=== PATIENT | female | born 1980 | race Two or more races ===

== ENCOUNTER 2016-10-01 10:47 | Outpatient (CLI) | payer MEDICAID ==
[2016-10-01 11:12] LABS: ALBUMIN/GLOBULIN RATIO 1.6 (1.0-2.2); BILIRUBIN,TOTAL 0.6 mg/dL (0.2-1.0); BUN - BLOOD UREA NITROGEN 11 mg/dL (6-20); CALCIUM 9.6 mg/dL (8.5-10.3); CARBON DIOXIDE - CO2 30 mmol/L (21-32); CHLORIDE 101 mmol/L (101-111); CREATININE 0.6 mg/dL (0.4-1.0); GFR - MDRD 114 (>89); GLUCOSE 63 mg/dL (70-100); POTASSIUM 3.9 mmol/L (3.5-5.0); SODIUM 139 mmol/L (135-145); TOTAL PROTEIN 7.7 g/dL (6.7-8.2)
[2016-10-01 11:19] LABS: BASOPHILS # (AUTO) 0.1 10^3/uL (0.0-0.1); BASOPHILS % (AUTO) 0.7 %; EOSINOPHILS # (AUTO) 0.1 10^3/uL (0.0-0.7); EOSINOPHILS % (AUTO) 1.3 %; HCT - HEMATOCRIT 44.4 % (37.0-47.0); LYMPHOCYTES # (AUTO) 2.1 10^3/uL (1.5-3.5); LYMPHOCYTES % (AUTO) 22.7 %; MEAN CORPUSCULAR HEMOGLOBIN 29.6 pg (27.0-31.0); MEAN CORPUSCULAR HGB CONC 33.8 g/dL (32.0-36.0); MEAN CORPUSCULAR VOLUME 87.5 fL (81.0-99.0); MEAN PLATELET VOLUME 7.9 fL (7.9-10.8); MONOCYTES # (AUTO) 0.6 10^3/uL (0.0-1.0); MONOCYTES % (AUTO) 6.7 %; NEUTROPHILS # (AUTO) 6.2 10^3/uL (1.5-6.6); NEUTROPHILS % (AUTO) 68.6 %; NUCLEATED RED BLOOD CELLS AUTO 0.1 /100WBC; RED BLOOD COUNT 5.08 10^6/uL (4.20-5.40); RED CELL DISTRIBUTION WIDTH 13.3 % (12.0-15.0)
== END 2016-10-01 10:48 | disposition home or self-care (01) ==
LOC: LAB 10:47
PROVIDERS: ATTEND Physician Assistant Medical
DX: Z00.00 Encounter for general adult medical examination without abnormal findings (principal)
CPT/HCPCS: 36415; 80053; 84443; 85025

== ENCOUNTER 2017-03-22 10:06 | Emergency (ER) | payer MEDICAID, OTHER ==
[2017-03-22 11:05] LABS: HCG UR QUAL NEGATIVE
[2017-03-22 12:03] VITALS: BP 109/69
--- NOTE | 2017-03-22 12:28 | ED Physician Documentation ---
History of Present Illness - Stated complaint Stated Complaint: COLDS - Chief complaint Chief Complaint: Heent - Additonal information Additional information: hx from pt 36 female subj fever chills myalgias fatigue cough for 3 days no NV Review of Systems Constitutional: reports: Fever, Chills, Myalgias, Fatigue Throat: reports: Sore throat (with cough) Respiratory: reports: Cough GI: denies: Vomiting, Diarrhea Immunocompromised: denies: Immunocompromised PD PAST MEDICAL HISTORY - Past Medical History Endocrine/Autoimmune: None GI: None - Past Surgical History Past Surgical History: Yes General: Cholecystectomy - Present Medications Home Medications: Ambulatory Orders Medication Instructions Recorded Confirmed Benzonatate [Tessalon] 100 mg PO TID PRN #20 capsule 03/22/17 Cholecalciferol [Vitamin D3] 5,000 unit 03/22/17 FLUoxetine [PROzac] 10 mg PO DAILY 03/22/17 03/22/17 Fluticasone [Flonase] 1 sprays ANTHONY BID PRN #1 bottle 03/22/17 guaiFENesin/DEXTROMETHORPHAN 10 ml PO Q6H PRN #120 ml 03/22/17 [Robitussin Dm] - Allergies Allergies/Adverse Reactions: Allergies Allergy/AdvReac Type Severity Reaction Status Date / Time No Known Drug Allergies Allergy Verified 03/22/17 10:17 - Social History Does the pt smoke?: No Smoking Status: Never smoker Does the pt drink ETOH?: No Does the pt have substance abuse?: No - Immunizations Immunizations are current?: Yes PD ED PE NORMAL - Vitals Vital signs reviewed: Yes - General General: Alert and oriented X 3 - HEENT HEENT: PERRL, Ears normal, Moist mucous membranes, Pharynx benign - Neck Neck: Supple, no meningeal sign - Cardiac Cardiac: RRR - Respiratory Respiratory: No respiratory distress, Clear bilaterally - Abdomen Abdomen: Soft, Non tender - Neuro Neuro: Alert and oriented X 3 Results - Vitals Vitals: Vital Signs - 24 hr 03/22/17 03/22/17 10:15 12:02 Temperature 36.5 C 37.0 C Heart Rate 118 H 104 H Respiratory 16 16 Rate Blood Pressure 122/90 H 109/69 O2 Saturation 99 99 Oxygen O2 Source Room air - Labs Labs: Laboratory Tests 03/22/17 03/22/17 10:25 10:48 Ur Specific [place] 1.025 Urine HCG, Qual NEGATIVE Influenza A (Rapid) Negative Influenza B (Rapid) POSITIVE H Influenza Types A,B Ag + H PD MEDICAL DECISION MAKING - ED course ED course: pt on day 3 influenza d/w pt risk benefit tamiflu she states she too several yr ago and had hallucinations so we agree benefit small risk large and will not rx Departure - Departure Disposition: 01 Home, Self Care Clinical Impression: Influenza B Condition: Good Instructions: ED Flu Follow-Up: Ct Macias PA-C [Primary Care Provider] - Prescriptions: Benzonatate [Tessalon] 100 mg PO TID PRN #20 capsule PRN Reason: to ease cough Fluticasone [Flonase] 1 sprays ANTHONY BID PRN #1 bottle PRN Reason: congestion guaiFENesin/DEXTROMETHORPHAN [Robitussin Dm] 10 ml PO Q6H PRN #120 ml PRN Reason: Cough Forms: Activity restrictions
== END 2017-03-22 12:39 | disposition home or self-care (01) ==
LOC: ED 10:06
DX: J10.1 Influenza due to other identified influenza virus with other respiratory manifestations (principal)
CPT/HCPCS: 81025; 87275; 87276; 99283

== ENCOUNTER 2018-09-27 13:26 | Outpatient (CLI) | payer OTHER, MEDICAID ==
[2018-09-27 13:43] LABS: BASOPHILS # (AUTO) 0.1 10^3/uL (0.0-0.1); BASOPHILS % (AUTO) 0.4 %; EOSINOPHILS # (AUTO) 0.1 10^3/uL (0.0-0.7); HGB - HEMOGLOBIN 14.3 g/dL (12.0-16.0); LYMPHOCYTES # (AUTO) 2.2 10^3/uL (1.5-3.5); LYMPHOCYTES % (AUTO) 19.2 %; MEAN CORPUSCULAR HEMOGLOBIN 30.9 pg (27.0-31.0); MEAN CORPUSCULAR VOLUME 90.9 fL (81.0-99.0); MEAN PLATELET VOLUME 9.8 fL (7.9-10.8); MONOCYTES # (AUTO) 0.8 10^3/uL (0.0-1.0); MONOCYTES % (AUTO) 6.8 %; NEUTROPHILS # (AUTO) 8.1 10^3/uL (1.5-6.6); NEUTROPHILS % (AUTO) 71.7 %; PLT - PLATELET COUNT 280 10^3/uL (130-450); RED BLOOD COUNT 4.63 10^6/uL (4.20-5.40); RED CELL DISTRIBUTION WIDTH 12.7 % (12.0-15.0); WHITE BLOOD COUNT 11.3 x10^3/uL (4.8-10.8)
[2018-09-27 13:57] LABS: ALBUMIN 4.2 g/dL (3.2-5.5); ALBUMIN/GLOBULIN RATIO 1.4 (1.0-2.2); ALKALINE PHOSPHATASE 48 IU/L (42-121); ALT ALANINE AMINOTRANSFERASE 32 IU/L (10-60); AST ASPARTATE AMINOTRANSFERASE 19 IU/L (10-42); BILIRUBIN,TOTAL 0.3 mg/dL (0.2-1.0); BUN - BLOOD UREA NITROGEN 9 mg/dL (6-20); CALCIUM 9.6 mg/dL (8.5-10.3); CARBON DIOXIDE - CO2 27 mmol/L (21-32); CHLORIDE 104 mmol/L (101-111); CREATININE 0.6 mg/dL (0.4-1.0); GFR - MDRD 113 (>89); GLUCOSE 101 mg/dL (70-100); SODIUM 140 mmol/L (135-145); TOTAL PROTEIN 7.2 g/dL (6.7-8.2)
[2018-09-27 14:03] LABS: CRP - C-REACTIVE PROTEIN < 1.0 mg/dL (0-1.0)
== END 2018-09-27 13:27 | disposition home or self-care (01) ==
LOC: LAB 13:26
PROVIDERS: ATTEND Family Medicine
DX: R10.2 Pelvic and perineal pain (principal)
CPT/HCPCS: 36415; 80053; 84702; 85025; 85651; 86140

== ENCOUNTER 2018-10-07 09:27 | Outpatient (CLI) | payer OTHER, MEDICAID ==
--- NOTE | 2018-10-08 14:18 | Ultrasound Report ---
Reason: PELVIC PAIN Procedure Date: 10/07/2018 Accession Number: [id number] / [id number] Procedure: US - Pelvic w/Transvaginal CPT Code: FULL RESULT: EXAM: PELVIC ULTRASOUND EXAM DATE: 10/07/2018 10:25 AM. CLINICAL HISTORY: Pelvic pain. COMPARISON: None. TECHNIQUE: Realtime transabdominal pelvic scan performed to identify the uterus and adnexa and as an overview of other pelvic structures, followed by transvaginal scan to provide greater detail of the uterus and adnexa, with static image documentation. FINDINGS: Uterus: 8.0 x 3.9 x 4 x 5 cm, volume 72 cc. Anteverted position. Somewhat heterogeneous echotexture, otherwise within normal limits. Masses: 1.0 x 0.7 x 0.9 cm heterogeneous hypoechoic nodule, likely fibroid. Endometrium: 6 mm. Color Doppler evaluation of the endometrium suggests a feeding vessel along the posterior fundal endometrium in a heterogeneous appearing portion of the endometrium, suspect polyp. Cervix: Unremarkable. Right Ovary: 3.2 x 2.0 x 3.1 cm, volume 10.5 cc. 0.7 cm mildly hypoechoic nodule, likely subcentimeter hemorrhagic cyst. Otherwise normal echotexture and blood flow. Left Ovary: 2.6 x 1.5 x 2.4 cm, volume 4.7 cc. Normal echotexture and blood flow. Free Fluid: None. Other: None. IMPRESSION: Suspect fundal endometrial polyp as described. Small uterine fibroid potentially with submucosal component. RADIA
== END 2018-10-07 09:28 | disposition home or self-care (01) ==
LOC: DI 09:27
PROVIDERS: ATTEND Family Medicine
DX: N85.9 Noninflammatory disorder of uterus, unspecified (principal)
CPT/HCPCS: 76830; 76856

== ENCOUNTER 2020-05-04 20:51 | Outpatient (CLI) | payer MEDICAID ==
--- NOTE | 2020-05-05 09:06 | Ultrasound Report ---
PROCEDURE: OB First Trimester w/TV INDICATIONS: SUPERVISION OF NORMAL PREGNANY, MULTIPAROUS OUTSIDE/PRIOR DATING DATA: Last menstrual period (LMP): 03/06/2020. LMP-based estimated date of delivery (MOIZ): 12/11/2020. First dating scan (date and location): 05/04/2020. Estimated date of delivery (MOIZ) from first dating scan: 12/28/2020. TECHNIQUE: Real-time scanning was performed of the fetus and maternal pelvic organs, with image documentation. Endovaginal scanning was also performed to better visualize the fetus and maternal ovaries. COMPARISON: None FINDINGS: There is a single intrauterine gestation with crown-rump length 0.34 cm, with a measuremen t correlated with a gestational age of 6 weeks 0 days, +/- 5 days. cardiac activity is not obse rved. There is a small posterior uterine fibroid measuring only 1.7 cm in dimension. Measurement variabilit y in dating: +/- 4 weeks by LMP, +/- 7 days by mean sac diameter (use before 6 weeks gestation if cr own-rump length not able to be measured), +/- 5 days by crown-rump length (6-12 weeks gestation). Maternal organs: Ovaries normal considering gestational status.. IMPRESSION: Intrauterine gestation with yolk sac observed within the gestational sac. A pole without cardiac activity is currently visualized, and the size of the gestation is small to the degree that f etal cardiac activity may be not yet developed despite viable gestation. Correlation with quantitative beta hCG can be performed to assist in establishing likelihood of viabl e gestation. Additionally, and alternatively, follow-up repeat early OB ultrasound in 7-10 days could be performed. Reviewed by: Bobby Greer MD on 05/05/2020 9:05 AM PDT Approved by: Bobby Greer MD on 05/05/2020 9:05 AM PDT Station ID: [id number]
== END 2020-05-04 20:52 | disposition home or self-care (01) ==
LOC: DI 20:51
PROVIDERS: ATTEND Advanced Practice Midwife
DX: Z34.81 Encounter for supervision of other normal pregnancy, first trimester (principal)

== ENCOUNTER 2020-05-07 18:37 | Outpatient (CLI) | payer MEDICAID | END 2020-05-07 18:38 | disposition home or self-care (01) | LOC: LAB 18:37 | PROVIDERS: ATTEND Nurse Practitioner Obstetrics & Gynecology | DX: O20.0 Threatened abortion (principal) | CPT/HCPCS: 36415; 84702 ==

== ENCOUNTER 2020-05-10 07:19 | Outpatient (CLI) | payer MEDICAID | END 2020-05-10 07:20 | disposition home or self-care (01) | LOC: LAB 07:19 | PROVIDERS: ATTEND Nurse Practitioner Obstetrics & Gynecology | DX: O20.0 Threatened abortion (principal) | CPT/HCPCS: 36415; 84702 ==

== ENCOUNTER 2020-05-13 18:28 | Outpatient (CLI) | payer MEDICAID | END 2020-05-13 18:29 | disposition home or self-care (01) | LOC: LAB 18:28 | PROVIDERS: ATTEND Advanced Practice Midwife | DX: O20.0 Threatened abortion (principal) | CPT/HCPCS: 36415; 84702 ==

== ENCOUNTER 2020-05-14 08:49 | Outpatient (CLI) | payer MEDICAID | END 2020-05-14 08:50 | disposition home or self-care (01) | LOC: LAB 08:49 | PROVIDERS: ATTEND Advanced Practice Midwife | DX: O20.0 Threatened abortion (principal) | CPT/HCPCS: 36415; 84702 ==

== ENCOUNTER 2020-05-14 19:41 | Outpatient (CLI) | payer MEDICAID ==
--- NOTE | 2020-05-14 21:39 | Ultrasound Report ---
PROCEDURE: OB First Trimester w/TV INDICATIONS: THREATENED OUTSIDE/PRIOR DATING DATA: Last menstrual period (LMP): 03/06/2020. LMP-based estimated date of delivery (MOIZ): 12/11/2020. First dating scan (date and location): 05/04/2020. Estimated date of delivery (MOIZ) from first dating scan: 12/28/2020. TECHNIQUE: Real-time scanning was performed of the fetus and maternal pelvic organs, with image documentation. Endovaginal scanning was also performed to better visualize the fetus and maternal ovaries. COMPARISON: 05/04/2020. FINDINGS: Embryo: There is an intrauterine gestational sac with a mean sac diameter of 1.6 cm corresponding to a gestational age of 6 weeks 3 days. The gestational sac is oblong in appearance. A yolk sac is iden tified. There is a small pole redemonstrated with a crown-rump length of 0.4 cm again correspon ding to a calculated gestational age of 6 weeks 0 days. No heart motion visualized are identifi ed on M-mode Doppler interrogation. A small amount of endometrial fluid is present. There is a hypoec hoic posterior fibroid in the uterus measuring up to 1.9 x 1.9 x 1.7 cm. Measurement variability in dating: +/- 4 weeks by LMP, +/- 7 days by mean sac diameter (use before 6 weeks gestation if crown-rump length not able to be measured), +/- 5 days by crown-rump length (6-12 weeks gestation). Maternal organs: The right ovary measures up to 3.3 x 1.8 x 2.9 cm with a volume of 8.9 mL. The left ovary measures up to 2.1 x 1.6 x 1.9 cm with a volume of 3.4 mL. There is a hypoechoic structure with in the right ovary with posterior acoustic enhancement measuring up to 1.9 cm with peripheral vascula rity is compatible with a corpus luteal cyst. A heterogeneous thick-walled structure in the left ovar y measuring up to 1.4 cm may also represent a small corpus luteal cyst. IMPRESSION: 1. Single intrauterine redemonstrated with a small pole demonstrating no interval xavier wth compared to the prior study. heart motion is again not identified. The findings are compati ble with a spontaneous progress. Reviewed by: Pablito Rosenberg MD on 05/14/2020 9:37 PM PDT Approved by: Pablito Rosenberg MD on 05/14/2020 9:37 PM PDT Station ID: [id number]
== END 2020-05-14 19:42 | disposition home or self-care (01) ==
LOC: DI 19:41
PROVIDERS: ATTEND Advanced Practice Midwife
DX: O20.0 Threatened abortion (principal); Z3A.01 Less than 8 weeks gestation of pregnancy
CPT/HCPCS: 36415; 84702

== ENCOUNTER 2020-05-27 17:52 | Outpatient (CLI) | payer MEDICAID | END 2020-05-27 17:53 | disposition home or self-care (01) | LOC: LAB 17:52 | PROVIDERS: ATTEND Advanced Practice Midwife | DX: O20.0 Threatened abortion (principal) | CPT/HCPCS: 36415; 84702 ==

== ENCOUNTER 2020-12-15 08:00 | Outpatient (CLI) | payer MEDICAID ==
[2020-12-16 12:59] LABS: BILIRUBIN,URINE NEGATIVE (NEGATIVE); GLUCOSE, URINE (UA) NEGATIVE (NEGATIVE); KETONES,URINE (UA) NEGATIVE (NEGATIVE); LEUKOCYTE ESTERASE, URINE SMALL (NEGATIVE); NITRITE,URINE NEGATIVE (NEGATIVE); OCCULT BLOOD,URINE NEGATIVE (NEGATIVE); PH,URINE 6.5 PH (5.0-7.5); PROTEIN,URINE NEGATIVE (NEGATIVE); UROBILINOGEN,URINE 0.2 (NORMAL) E.U./dL (NORMAL)
[2020-12-16 13:02] LABS: CLARITY,URINE CLEAR (CLEAR)
[2020-12-16 13:46] LABS: RBC,URINE 0-5 /HPF (0-5); SQUAMOUS EPITHELIAL CELL,UR MOD Squamous (<= Few); WBC,URINE 0-3 /HPF (0-5)
[2020-12-16 13:47] LABS: BACTERIA,URINE Few /HPF (None Seen)
== END 2020-12-15 23:59 | disposition home or self-care (01) ==
LOC: LAB.WC 08:00
PROVIDERS: ATTEND Nurse Practitioner Obstetrics & Gynecology
DX: Z32.01 Encounter for pregnancy test, result positive (principal)
CPT/HCPCS: 81001; 87086

== ENCOUNTER 2020-12-26 07:22 | Outpatient (CLI) | payer MEDICAID ==
[2020-12-26 08:06] LABS: BASOPHILS % (AUTO) 0.2 %; HCT - HEMATOCRIT 39.6 % (37.0-47.0); HGB - HEMOGLOBIN 13.3 g/dL (12.0-16.0); LYMPHOCYTES # (AUTO) 1.9 10^3/uL (1.5-3.5); LYMPHOCYTES % (AUTO) 14.2 %; MEAN CORPUSCULAR HEMOGLOBIN 30.2 pg (27.0-31.0); MEAN CORPUSCULAR HGB CONC 33.6 g/dL (32.0-36.0); MEAN CORPUSCULAR VOLUME 89.8 fL (81.0-99.0); MEAN PLATELET VOLUME 9.4 fL (7.9-10.8); MONOCYTES # (AUTO) 0.7 10^3/uL (0.0-1.0); MONOCYTES % (AUTO) 5.4 %; NEUTROPHILS # (AUTO) 10.5 10^3/uL (1.5-6.6); NEUTROPHILS % (AUTO) 79.7 %; PLT - PLATELET COUNT 297 10^3/uL (130-450); RED BLOOD COUNT 4.41 10^6/uL (4.20-5.40); RED CELL DISTRIBUTION WIDTH 13.2 % (12.0-15.0); WHITE BLOOD COUNT 13.2 x10^3/uL (4.8-10.8)
[2020-12-26 08:17] LABS: BILIRUBIN,URINE NEGATIVE (NEGATIVE); GLUCOSE, URINE (UA) NEGATIVE (NEGATIVE); KETONES,URINE (UA) NEGATIVE (NEGATIVE); LEUKOCYTE ESTERASE, URINE NEGATIVE (NEGATIVE); NITRITE,URINE NEGATIVE (NEGATIVE); OCCULT BLOOD,URINE NEGATIVE (NEGATIVE); PH,URINE 6.5 PH (5.0-7.5); PROTEIN,URINE NEGATIVE (NEGATIVE); UROBILINOGEN,URINE 0.2 (NORMAL) E.U./dL (NORMAL)
--- NOTE | 2020-12-26 08:19 | Ultrasound Report ---
PROCEDURE: OB First Trimester INDICATIONS: +PREG TEST OUTSIDE/PRIOR DATING DATA: Last menstrual period (LMP): Unknown. LMP-based estimated date of delivery (MOIZ): Unknown. First dating scan (date and location): 12/26/2020. Estimated date of delivery (MOIZ) from first dating scan: 08/07/2021. The below data below was generated using the study generated MOIZ of 08/07/2021 TECHNIQUE: Real-time scanning was performed of the fetus and maternal pelvic organs, with image documentation. COMPARISON: None FINDINGS: Embryo: Single intrauterine gestational sac is seen with fetus and yolk sac seen. [place]-rump length measures 1.6 cm. Estimated gestational age is 8 weeks, 0 day. Heart rate: 158 bpm. There is a 7 x 5 x 11 mm subchorionic hemorrhage superior to the gestational sac. A second subchorion ic hemorrhage inferior to gestational sac is also seen measures 13 x 8 x 6 mm in size. Measurement variability in dating: +/- 4 weeks by LMP, +/- 7 days by mean sac diameter (use before 6 weeks gestation if crown-rump length not able to be measured), +/- 5 days by crown-rump length (6-12 weeks gestation). Maternal organs: Ovaries are visualized and are within normal limits. Prominent follicle is noted in right ovary measures 1.9 x 1.7 x 1.8 cm in size.. IMPRESSION: 1. Single live intrauterine gestation with fetus and yolk sac seen. heart rate is 158 bpm. Kristal mated gestational age is 8 weeks, 0 day. 2. 2 small perigestational hemorrhage are seen as above. 3. Prominent follicle noted in right ovary. No solid-appearing ovarian lesion. Reviewed by: Danny Leal MD on 12/26/2020 8:18 AM PST Approved by: Danny Leal MD on 12/26/2020 8:18 AM PST Station ID: [id number]
[2020-12-26 08:42] LABS: CLARITY,URINE HAZY (CLEAR)
[2020-12-26 08:43] LABS: BACTERIA,URINE Few /HPF (None Seen); RBC,URINE 0-5 /HPF (0-5); SQUAMOUS EPITHELIAL CELL,UR MANY Squamous (<= Few); WBC,URINE 0-3 /HPF (0-5)
[2020-12-28 09:51] LABS: HEPATITIS B SURFACE ANTIGEN NON-REACTIVE (NON-REACTIVE); HEPATITIS C ANTIBODY NON-REACTIVE (NON-REACTIVE)
[2020-12-28 11:17] LABS: HIV AG/AB 4TH GEN NON-REACTIVE (NON-REACTIVE)
== END 2020-12-26 07:23 | disposition home or self-care (01) ==
LOC: DI 07:22
PROVIDERS: ATTEND Nurse Practitioner Obstetrics & Gynecology
DX: Z32.01 Encounter for pregnancy test, result positive (principal); Z36.89 Encounter for other specified antenatal screening
CPT/HCPCS: 36415; 81001; 85025; 86592; 86762; 86787; 86803; 86850; 86900; 86901; 87086; 87340; 87389

== ENCOUNTER 2021-01-04 16:45 | Outpatient (CLI) | payer MEDICAID ==
[2021-01-04 23:50] LABS: CHLAMYDIA TRACHOMATIS DNA NEGATIVE (NEGATIVE); NEISSERIA GONORRHOEAE DNA NEGATIVE (NEGATIVE); TRICHOMONAS VAGINALIS DNA NEGATIVE (NEGATIVE)
== END 2021-01-04 23:59 | disposition home or self-care (01) ==
LOC: LAB 16:45
PROVIDERS: ATTEND Nurse Practitioner Obstetrics & Gynecology
DX: Z11.3 Encounter for screening for infections with a predominantly sexual mode of transmission (principal)
CPT/HCPCS: 87491; 87591; 87661

== ENCOUNTER 2021-01-11 14:49 | Outpatient (CLI) | payer MEDICAID | END 2021-01-11 14:50 | disposition home or self-care (01) | LOC: LAB 14:49 | PROVIDERS: ATTEND Nurse Practitioner Obstetrics & Gynecology | DX: O09.529 Supervision of elderly multigravida, unspecified trimester (principal) | CPT/HCPCS: 36415 ==

== ENCOUNTER 2021-02-23 14:44 | Outpatient (CLI) | payer MEDICAID | END 2021-02-23 14:45 | disposition home or self-care (01) | LOC: LAB 14:44 | PROVIDERS: ATTEND Nurse Practitioner Obstetrics & Gynecology | DX: Z36.8A Encounter for antenatal screening for other genetic defects (principal) | CPT/HCPCS: 81599; 82105 ==

== ENCOUNTER 2021-03-09 08:05 | Outpatient (CLI) | payer MEDICAID ==
[2021-03-09 08:33] LABS: HCT - HEMATOCRIT 38.2 % (37.0-47.0); MEAN CORPUSCULAR VOLUME 88.2 fL (81.0-99.0); MEAN PLATELET VOLUME 9.6 fL (7.9-10.8); RED BLOOD COUNT 4.33 10^6/uL (4.20-5.40); RED CELL DISTRIBUTION WIDTH 13.1 % (12.0-15.0)
[2021-03-09 08:42] LABS: ALBUMIN 3.3 g/dL (3.2-5.5); BILIRUBIN,TOTAL 0.5 mg/dL (0.2-1.0); CALCIUM 8.5 mg/dL (8.5-10.3); CREATININE 0.7 mg/dL (0.4-1.0); POTASSIUM 3.5 mmol/L (3.5-5.0); TOTAL PROTEIN 6.6 g/dL (6.7-8.2)
== END 2021-03-09 08:06 | disposition home or self-care (01) ==
LOC: LAB 08:05
PROVIDERS: ATTEND Nurse Practitioner Obstetrics & Gynecology
DX: R10.11 Right upper quadrant pain (principal)
CPT/HCPCS: 36415; 80053; 85027

== ENCOUNTER 2021-03-22 14:38 | Outpatient (CLI) | payer MEDICAID ==
--- NOTE | 2021-03-22 16:51 | Ultrasound Report ---
PROCEDURE: OB Detailed Eval INDICATIONS: SUPERVISION ELDERLY MUTIGRAVAIDA OUTSIDE/PRIOR DATING DATA: Last menstrual period (LMP): Unknown. LMP-based estimated date of delivery (MOIZ): Not applicable. First dating scan (date and location): 12/26/2020. Estimated date of delivery (MOIZ) from first dating scan: 08/07/2021. TECHNIQUE: Real-time scanning was performed of the fetus, with image documentation and biometric measurements. Endovaginal scanning: No COMPARISON: None. FINDINGS: General: A single living intrauterine gestation is present. Presentation: Breech Placenta: Placental position is anterior, without previa. Amniotic fluid index: 12.8 cm. heart rate: 145 beats per minute. Maternal cervical canal: 5.1 cm long; normal length is 2.5 cm or more. biometrics: Biparietal diameter: 45 mm; 19 weeks 4 days Head circumference: 178 mm; 20 weeks 2 days Abdominal circumference: 150 mm; 20 weeks 2 days Femur length: 33 mm; 20 weeks 2 days Estimated gestational age from initial scan: 20 weeks 2 days Composite gestational age from present scan: 20 weeks 0 days Estimated weight and percentile: 342 g, which is at the 43rd percentile for gestational age Measurement variability in biometric dating: +/- 10 days from 12-20 weeks gestation, +/- 2 weeks from 20-30 weeks gestation, +/- 3 weeks at 30 weeks gestation or later. Anatomic survey: Neuro: Ventricles are normal at less than 10 mm. Cisterna magna is normal at 3-11 mm. Cerebellum i s normal in size and morphology. Nuchal skin fold: Normal at less than 6 mm between 14 and 20 weeks gestational age. Face: Nose and lips, facial profile are normal. Spine: No evidence for spina bifida. Heart: 4-chambered heart is present, with normal ventricular outflow tracts. Diaphragm: Diaphragm is intact. Stomach: Left-sided stomach is present. Kidneys: No hydronephrosis. Normal is less than 5 mm in 2nd trimester, less than 7 mm in 3rd trimester. Cord: 3 vessel cord has orthotopic insertion. Bladder: Normal in size. Extremities: All 4 extremities are visualized. IMPRESSION: 1. Single living intrauterine gestation. 2. Normal survey of anatomy. Reviewed by: Pablito Mcrae MD on 03/22/2021 4:50 PM PST Approved by: Pablito Mcrae MD on 03/22/2021 4:50 PM PST Station ID: [id number]
== END 2021-03-22 14:39 | disposition home or self-care (01) ==
LOC: DI 14:38
PROVIDERS: ATTEND Nurse Practitioner Obstetrics & Gynecology
DX: O09.522 Supervision of elderly multigravida, second trimester (principal); Z3A.20 20 weeks gestation of pregnancy

== ENCOUNTER 2021-05-11 13:06 | Outpatient (CLI) | payer MEDICAID ==
[2021-05-11 14:18] LABS: HGB - HEMOGLOBIN 12.5 g/dL (12.0-16.0); MEAN CORPUSCULAR HEMOGLOBIN 30.1 pg (27.0-31.0); MEAN CORPUSCULAR HGB CONC 34.7 g/dL (32.0-36.0); MEAN CORPUSCULAR VOLUME 86.7 fL (81.0-99.0); MEAN PLATELET VOLUME 9.9 fL (7.9-10.8); RED BLOOD COUNT 4.15 10^6/uL (4.20-5.40); RED CELL DISTRIBUTION WIDTH 13.3 % (12.0-15.0); WHITE BLOOD COUNT 12.2 x10^3/uL (4.8-10.8)
== END 2021-05-11 13:07 | disposition home or self-care (01) ==
LOC: LAB 13:06
PROVIDERS: ATTEND Nurse Practitioner Obstetrics & Gynecology
DX: Z36.9 Encounter for antenatal screening, unspecified (principal)
CPT/HCPCS: 36415; 82950; 85027

== ENCOUNTER 2021-05-13 08:03 | Outpatient (CLI) | payer MEDICAID ==
[2021-05-13 08:35] LABS: GTT GLUCOSE,FASTING 122 mg/dL (70-100)
== END 2021-05-13 08:04 | disposition home or self-care (01) ==
LOC: LAB 08:03
PROVIDERS: ATTEND Nurse Practitioner Obstetrics & Gynecology
DX: O99.815 Abnormal glucose complicating the puerperium (principal)
CPT/HCPCS: 36415; 82951; 82952

== ENCOUNTER 2021-05-27 08:49 | Outpatient (CLI) | payer MEDICAID | END 2021-05-27 08:50 | disposition home or self-care (01) | LOC: NS 08:49 | PROVIDERS: ATTEND Nurse Practitioner Obstetrics & Gynecology | DX: O24.419 Gestational diabetes mellitus in pregnancy, unspecified control (principal); Z71.3 Dietary counseling and surveillance | CPT/HCPCS: 97802 ==

== ENCOUNTER 2021-06-07 09:32 | Outpatient (CLI) | payer MEDICAID ==
[2021-06-07 09:53] VITALS: BP 128/78
--- NOTE | 2021-06-13 23:37 | PROCEDURE REPORT ---
- HPI Diagnosis/Indication for NST: Gestational Diabetes Current EDU 08/07/21 Gestation 31 Weeks and 2 Days 4 Para 1 Vital Signs Temperature 36.7 C 06/07/21 09:39 Heart Rate 80 06/07/21 09:39 Respiratory Rate 16 06/07/21 09:39 Blood Pressure 128/78 06/07/21 09:39 Temperature 36.7 C 06/07/21 09:39 Heart Rate 80 06/07/21 09:39 Respiratory Rate 16 06/07/21 09:39 Blood Pressure 128/78 06/07/21 09:39 O2 Saturation - NST Procedure NST Procedure Start Date 06/07/21 Start Time 09:43 Stop Time 10:08 Vibroacoustic Stimulation Used No Patient States Movement Yes - Results and Plan Plan: Annette presents to [facility] for scheduled NST secondary to A2GDM. She denies concerns or complaints today. NST performed 06/07/2021 NST read 06/07/2021 NST reactive. FHR 135, moderate variability, + accels, no decels No contractions appreciated via tocometry Continue with twice weekly NSTs with once weekly AFIs. Pt has emergency contact information. Pt released home with precautions. Pt verbalized understanding and agrees to above plan. She denies further questions or concerns at this time. FINAL DIAGNOSIS: [id number] diabetes
== END 2021-06-07 10:15 | disposition home or self-care (01) ==
LOC: WFO 09:32 → FBP 09:36 → WFO 10:15
PROVIDERS: ATTEND Nurse Practitioner Obstetrics & Gynecology
DX: O24.419 Gestational diabetes mellitus in pregnancy, unspecified control (principal); Z3A.31 31 weeks gestation of pregnancy
CPT/HCPCS: 59025

== ENCOUNTER 2021-06-09 22:12 | Outpatient (CLI) | payer MEDICAID ==
--- NOTE | 2021-06-10 19:13 | Ultrasound Report ---
PROCEDURE: OB F/U or Repeat INDICATIONS: GESTATIONAL DIABETIES OUTSIDE/PRIOR DATING DATA: Last menstrual period (LMP): Unknown. LMP-based estimated date of delivery (MOIZ): Unknown. First dating scan (date and location): 12/26/2020. Estimated date of delivery (MOIZ) from first dating scan: 08/07/2021. The below data below was generated using the ultrasound MOIZ of 08/07/2021 TECHNIQUE: Real-time scanning was performed of the fetus, with image documentation and biometric measurements. COMPARISON: OB ultrasound 03/22/2021, 11/22/2020 FINDINGS: General: A single living intrauterine gestation is present. Presentation: Vertex Placenta: Placental position is anterior, without previa. Amniotic fluid index: 10.6 cm, within normal limits for gestational age. Largest pocket 3.4 cm heart rate: 125 beats per minute. Maternal cervical canal: 3.6 cm long; normal length is 2.5 cm or more. biometrics: Biparietal diameter: 7.6 cm 30 weeks 5 days Head circumference: 20.47 m 31 weeks 1 day Abdominal circumference: 26.3 cm 30 weeks 3 days Femur length: 5.9 cm 31 weeks 0 days Estimated gestational age from initial scan: 31 weeks 4 days Composite gestational age from present scan: 30 weeks 5 days Estimated weight and percentile: 1117 g, 15th percentile Measurement variability in biometric dating: +/- 10 days from 12-20 weeks gestation, +/- 2 weeks from 20-30 weeks gestation, +/- 3 weeks at 30 weeks gestation or more. Other: Not applicable. IMPRESSION: Single live intrauterine with ultrasound gestational age today of 30 weeks 6 days. Estimated weight is at the 15th percentile. Recommend continued interval follow-up. Reviewed by: Jaylin Shafer MD on 06/10/2021 7:12 PM PDT Approved by: Jaylin Shafer MD on 06/10/2021 7:12 PM PDT Station ID: [id number]
== END 2021-06-09 22:13 | disposition home or self-care (01) ==
LOC: DI 22:12
PROVIDERS: ATTEND Nurse Practitioner Obstetrics & Gynecology
DX: O24.419 Gestational diabetes mellitus in pregnancy, unspecified control (principal); Z3A.30 30 weeks gestation of pregnancy

== ENCOUNTER 2021-06-10 15:47 | Outpatient (CLI) | payer MEDICAID ==
[2021-06-10 16:59] VITALS: BP 133/66
--- NOTE | 2021-06-11 12:55 | PROCEDURE REPORT ---
- HPI Diagnosis/Indication for NST: Gestational Diabetes Current EDU 08/07/21 Gestation 31 Weeks and 5 Days 5 Para 1 Vital Signs Temperature 37.0 C 06/10/21 16:00 Heart Rate 79 06/10/21 16:00 Respiratory Rate 16 06/10/21 16:00 Blood Pressure 133/66 H 06/10/21 16:00 O2 Saturation 100 06/10/21 16:00 Temperature 37.0 C 06/10/21 16:20 Heart Rate 79 06/10/21 16:00 Respiratory Rate 16 06/10/21 16:00 Blood Pressure 133/66 H 06/10/21 16:00 O2 Saturation 100 06/10/21 16:00 - NST Procedure NST Procedure Start Date 06/10/21 Start Time 16:00 Stop Time 16:20 Vibroacoustic Stimulation Used No Patient States Movement Yes - Results and Plan Findings/Impression: Annette presents today to [facility] for scheduled NST secondary to gestational diabetes mellitus controlled by medication. NST performed 06/10/2021 NST read 06/11/2021 NST reactive. FHR baseline 140sl moderate variability, + accels, no decels No contractions appreciated via tocometry. Pt released home with precautions. Continue twice weekly NSTs with once weekly BRET. Follow-up visit scheduled next week in the clinic. Pt has emergency contact number. She discharged home with precautions. Pt verbalized understanding and agrees to above plan. She denies further questions or concerns at this time.
== END 2021-06-10 16:22 | disposition home or self-care (01) ==
LOC: WFO 15:47 → FBP 15:49 → WFO 16:22
PROVIDERS: ATTEND Obstetrics & Gynecology
DX: O24.419 Gestational diabetes mellitus in pregnancy, unspecified control (principal); Z3A.31 31 weeks gestation of pregnancy
CPT/HCPCS: 59025

== ENCOUNTER 2021-06-13 06:33 | Outpatient (CLI) | payer MEDICAID ==
[2021-06-13 07:16] VITALS: BP 127/75
--- NOTE | 2021-06-13 23:46 | PROVIDER PROGRESS NOTE ---
- HPI Chief Complaint: Decreased movement Current : Current EDU 08/07/21 Gestation 32 Weeks and 1 Days 5 Para 1 Vital Signs Temperature 36.9 C 06/13/21 06:45 Heart Rate 83 06/13/21 06:45 Respiratory Rate 16 06/13/21 06:45 Blood Pressure 127/75 06/13/21 06:45 Temperature 36.9 C 06/13/21 06:45 Heart Rate 83 06/13/21 06:45 Respiratory Rate 16 06/13/21 06:45 Blood Pressure 127/75 06/13/21 06:45 O2 Saturation - Procedures OB Procedure Performed: NST Diagnosis/Indication for NST: Decreased movement NST Procedure: NST Procedure Start Date 07/03/21 Start Time 06:56 Stop Time 07:16 Vibroacoustic Stimulation Used No Patient States Movement Yes: Began feeling movement during EFM monitoring - Plan Plan: Annette presents to [facility] with c/o intermittent abdominal cramping and decreased movement. She states her baby usually moved frequently in the morning and has not moved at all this morning. She denies vaginal bleeding or leakage of fluid. She does not feel like the abdominal cramping is contractions but she states she is not entirely sure as it has been awhile since she has had a baby. She states the pain is sometimes on her right side and sometimes on her left. She denies urinary symptoms. She reports her bowel movements have seemed more firm since starting the metformin and she acknowledges that the onset of GI symptoms seem to be around the time she initiated the metformin. She works long hours as a head housekeeper and states the weekends are very busy and she rarely gets a moment to sit down. Heart RRR w/o M/G/R, lungs CTAB, abdomen gravid, soft, nontender, bilateral LE's trace edema. Vital signs WNL. Upon arrival pt states she has begun to feel her baby move regularly. NST performed 06/13/2021 NST read 06/13/2021 NST reactive. FHR baseline 140s, moderate variability, + accels, no decels No contractions appreciated via tocometry Pt reassured with movement and WNL NST. Encouraged increased fluid intake and rest. Advised TUMS and simethicone for GI upset. Discussed use of Mirilax or colace for constipation- reviewed normally opposite problem with initiation of Metformin. Pt released home with precautions. FINAL DIAGNOSIS: Decreased movement Constipation
== END 2021-06-13 08:05 | disposition home or self-care (01) ==
LOC: WFO 06:33 → FBP 06:39 → WFO 08:05
PROVIDERS: ATTEND Nurse Practitioner Obstetrics & Gynecology
DX: O36.8130 Decreased fetal movements, third trimester, not applicable or unspecified (principal); Z3A.32 32 weeks gestation of pregnancy; O99.613 Diseases of the digestive system complicating pregnancy, third trimester; K59.00 Constipation, unspecified
CPT/HCPCS: 59025; 99214

== ENCOUNTER 2021-07-01 15:45 | Outpatient (CLI) | payer MEDICAID ==
[2021-07-01 16:03] VITALS: BP 113/66
--- NOTE | 2021-07-04 17:03 | PROCEDURE REPORT ---
- HPI Diagnosis/Indication for NST: Gestational Diabetes Current EDU 08/07/21 Gestation 34 Weeks and 5 Days 5 Para 1 Vital Signs Temperature 36.4 C L 07/01/21 15:59 Heart Rate 95 07/01/21 15:59 Respiratory Rate 17 07/01/21 15:59 Blood Pressure 113/66 07/01/21 15:59 Temperature 36.4 C L 07/01/21 16:30 Heart Rate 95 07/01/21 16:30 Respiratory Rate 17 07/01/21 16:30 Blood Pressure 113/66 07/01/21 16:30 O2 Saturation - NST Procedure NST Procedure Start Date 07/01/21 Start Time 15:55 Stop Time 16:13 Vibroacoustic Stimulation Used No Patient States Movement Yes - Results and Plan Findings/Impression: NST performed 07/01/2021 NST read 07/02/2021 NST reactive. FHR baseline 135, moderate variability, + accels, no decels No contractions appreciated via tocometry
== END 2021-07-01 16:25 | disposition home or self-care (01) ==
LOC: WFO 15:45 → FBP 15:47 → WFO 16:25
PROVIDERS: ATTEND Nurse Practitioner Obstetrics & Gynecology
DX: O24.419 Gestational diabetes mellitus in pregnancy, unspecified control (principal); Z3A.34 34 weeks gestation of pregnancy
CPT/HCPCS: 59025

== ENCOUNTER 2021-07-05 21:15 | Outpatient (CLI) | payer MEDICAID ==
--- NOTE | 2021-07-06 16:06 | Ultrasound Report ---
PROCEDURE: OB F/U or Repeat INDICATIONS: GESTATIONAL DIABETES OUTSIDE/PRIOR DATING DATA: Last menstrual period (LMP): On no. LMP-based estimated date of delivery (MOIZ): Unknown. First dating scan (date and location): 12/26/2020. Estimated date of delivery (MOIZ) from first dating scan: 08/07/2021. The below data below was generated using the ultrasound MOIZ of 08/07/2021 TECHNIQUE: Real-time scanning was performed of the fetus, with image documentation and biometric measurements. COMPARISON: OB ultrasound 06/10/2021 FINDINGS: General: A single living intrauterine gestation is present. Presentation: Vertex Placenta: Placental position is anterior, without previa. Amniotic fluid index: 10.4 cm, within normal limits for gestational age. Largest pocket 3.8 cm heart rate: 120 beats per minute. Maternal cervical canal: 4.4 cm long; normal length is 2.5 cm or more. biometrics: Biparietal diameter: 8.2 cm 33 weeks 1 day Head circumference: 31.0 cm 34 weeks 4 days Abdominal circumference: 29.4 cm 33 weeks 0 days Femur length: 6.9 cm 35 weeks 2 days Estimated gestational age from initial scan: 35 weeks 2 days Composite gestational age from present scan: 34 weeks 0 days Estimated weight and percentile: 2295 g 14th percentile Measurement variability in biometric dating: +/- 10 days from 12-20 weeks gestation, +/- 2 weeks from 20-30 weeks gestation, +/- 3 weeks at 30 weeks gestation or more. Other: Not applicable. IMPRESSION: Single limited to with ultrasound gestational age today 34 weeks 0 days. Estimated weight is at the 14th percentile compared to 15th percentile on prior exam. Reviewed by: Jaylin Shafer MD on 07/06/2021 4:04 PM PDT Approved by: Jaylin Shafer MD on 07/06/2021 4:04 PM PDT Station ID: [id number]
== END 2021-07-05 21:16 | disposition home or self-care (01) ==
LOC: DI 21:15
PROVIDERS: ATTEND Nurse Practitioner Obstetrics & Gynecology
DX: O24.419 Gestational diabetes mellitus in pregnancy, unspecified control (principal); Z3A.34 34 weeks gestation of pregnancy

== ENCOUNTER 2021-07-22 14:43 | Inpatient (IN) | payer MEDICAID ==
[2021-07-22 15:55] LABS: RUPTURE OF MEMBRANES PLUS POSITIVE (NEGATIVE)
[2021-07-22] MEDS ORDERED: OXYTOCIN 10 UNIT/ML VIAL IM PRN (16:58)
[2021-07-22] MEDS ORDERED: LACTATED RINGERS 500 ML IV ONE (16:58)
[2021-07-22] MEDS ORDERED: hydrALAZINE INJ 20 MG/ML VIAL IVP PRN ×2 (16:58)
[2021-07-22] MEDS ORDERED: TRANEXAMIC ACID IN NACL 1,000 MG/100 ML BAG IV PRN (16:58)
[2021-07-22] MEDS ORDERED: TERBUTALINE 1 MG/ML VIAL SUBQ PRN (16:58)
[2021-07-22] MEDS ORDERED: fentaNYL 100 MCG/2 ML VIAL IVP PRN (16:58)
[2021-07-22] MEDS ORDERED: OXYTOCIN/SODIUM CHLORIDE 500 ML IV PRN (16:58)
[2021-07-22] MEDS ORDERED: SODIUM CHLORIDE FLUSH 0.9% 10 ML SYRINGE IVP PRN (16:58)
[2021-07-22] MEDS ORDERED: miSOPROStoL 200 MCG TABLET BC PRN (16:58)
[2021-07-22] MEDS ORDERED: miSOPROStoL 200 MCG TABLET PR PRN (16:58)
[2021-07-22] MEDS ORDERED: LIDOCAINE-MPF 1% 30 ML VIAL ID PRN (16:58)
[2021-07-22] MEDS ORDERED: ACETAMINOPHEN 500 MG TABLET PO PRN (16:58)
[2021-07-22] MEDS ORDERED: CARBOPROST TROMETHAMINE 250 MCG/ML AMP IM PRN (16:58)
[2021-07-22] MEDS ORDERED: LABETALOL 20 MG/4 ML SYRINGE IVP PRN ×3 (16:58)
[2021-07-22] MEDS ORDERED: METHYLERGONOVINE 0.2 MG/ML VIAL IM PRN (16:58)
[2021-07-22] MEDS ORDERED: NIFEdipine 10 MG CAPSULE PO PRN (16:58)
[2021-07-22] MEDS ORDERED: SODIUM CHLORIDE FLUSH 0.9% 10 ML SYRINGE IVP SCH (17:00)
--- NOTE | 2021-07-22 17:19 | HISTORY & PHYSICAL EXAMINATION ---
Admit History - Smoking Status: Former smoker - Other Maternal History Other Maternal History: CC: leaking of water HPI: had leaking of clear fluid at 12:00 today. Continuing to gush. Having discrete contractions now, tightening but not pain, new in the past hour. No significant bleeding. movement has been decreased since leaking of fluid. PMH: A2GDM, obese, recurrent loss (SAB x3) Meds: NPH 16U qhs, PNV daily OB: Dating: by 8w US--irregular menses. MOIZ 08/07/21 Labs: GBS neg 07/12/21. 1h = 202. Otherwise normal. Anatomy: report not available, growth noted in chart and no anomalies mentioned. Vaccines: Problems -A2GDM with poor glycemic control, unable to control with metformin, started insulin at 35w with ongoing control problems. -ARLEY declined MFM consult -Obese: normal TSH. PSH: lsc arleth, CKC x3. Allergies: NKDA SH: no t/e/d. Works as a pharmacy cashier. New FOB this time. FH: no anesthesia complications O: AVSS, alert, smiling, NAD. Abd soft, nt/nd. Fundus soft between contractio ns. Vertex and OP by US. EFW by sharath 7.5# A/P: 41yo at 37w5d with PROM at home, clear, 5h ago. Contractions are starting spontaneously. Will continue to observe and plan to augment if needed. Afebrile and no signs of infection. Delay SVE until labor becomes active. Fetus: normal NIPT, vertex, normal NST, clear fluid, 14%ile on 07/05/21 GBS: neg A2GDM: hold insulin tonight. Check sugars 1h postprandial and fasting. VTE: SCD if epidural due to BMI : O+, RI, . Hx of depression/anxiety in the past--watch Meds/Allgy - Home Medications Home Medications: Ambulatory Orders Medication Instructions Recorded Confirmed Benzonatate [Tessalon] 100 mg PO TID PRN #20 capsule 03/22/17 Cholecalciferol [Vitamin D3] 5,000 unit 03/22/17 FLUoxetine [PROzac] 10 mg PO DAILY 03/22/17 03/22/17 Fluticasone [Flonase] 1 sprays ANTHONY BID PRN #1 bottle 03/22/17 guaiFENesin/DEXTROMETHORPHAN 10 ml PO Q6H PRN #120 ml 03/22/17 [Robitussin Dm] - Allergies Allergies/Adverse Reactions: Allergies Allergy/AdvReac Type Severity Reaction Status Date / Time No Known Drug Allergies Allergy Verified 03/22/17 10:17 Physical - Abdominal Exam Vital Signs: Temp Pulse Resp BP Pulse Ox 97.9 F 74 20 125/79 07/22/21 16:11 07/22/21 16:11 07/22/21 16:11 07/22/21 16:11
[2021-07-22 17:35] LABS: BASOPHILS % (AUTO) 0.2 %; EOSINOPHILS # (AUTO) 0.1 10^3/uL (0.0-0.7); EOSINOPHILS % (AUTO) 0.4 %; HCT - HEMATOCRIT 38.9 % (37.0-47.0); HGB - HEMOGLOBIN 13.2 g/dL (12.0-16.0); LYMPHOCYTES # (AUTO) 2.1 10^3/uL (1.5-3.5); LYMPHOCYTES % (AUTO) 14.9 %; MEAN CORPUSCULAR HEMOGLOBIN 28.9 pg (27.0-31.0); MEAN CORPUSCULAR HGB CONC 33.9 g/dL (32.0-36.0); MEAN CORPUSCULAR VOLUME 85.1 fL (81.0-99.0); MEAN PLATELET VOLUME 11.1 fL (7.9-10.8); MONOCYTES % (AUTO) 7.4 %; NEUTROPHILS # (AUTO) 10.6 10^3/uL (1.5-6.6); NEUTROPHILS % (AUTO) 76.7 %; PLT - PLATELET COUNT 247 10^3/uL (130-450); RED BLOOD COUNT 4.57 10^6/uL (4.20-5.40); RED CELL DISTRIBUTION WIDTH 14.3 % (12.0-15.0); WHITE BLOOD COUNT 13.9 x10^3/uL (4.8-10.8)
[2021-07-22] MEDS ORDERED: INSULIN REGULAR HUMAN 300 UNIT/3 ML VIAL SUBQ ONE (19:02)
[2021-07-22] MEDS: LACTATED RINGERS 1,000 ML IV PRN (22:30)
[2021-07-22] MEDS ORDERED: ROPIVACAINE 0.2% 200 MG/100 ML BAG EP ONE (22:31)
[2021-07-22] MEDS ORDERED: fentaNYL 100 MCG/2 ML VIAL ONE (22:35)
[2021-07-22] MEDS ORDERED: ePHEDrine 50 MG/ML VIAL IVP PRN (22:48)
[2021-07-22] MEDS ORDERED: NALOXONE 0.4 MG/ML VIAL IVP PRN (22:48)
[2021-07-22] MEDS ORDERED: ROPIVACAINE 0.2% 200 MG/100 ML BAG EP PRN ×2 (22:48→22:49)
--- NOTE | 2021-07-22 22:48 | ANESTHESIA ---
Pre-Anesthesia VS, & Labs - Diagnosis Active labor - Procedure vaginal delivery Vital Signs: Temp Pulse Resp BP Pulse Ox 36.6 C 74 20 125/79 07/22/21 16:11 07/22/21 16:11 07/22/21 16:11 07/22/21 16:11 Height: 5 ft Weight (kg): 82.554 kg Body Mass Index: 35.5 BMI Classification: Obese - NPO Other (clear liquids) - Is Patient ?: Yes - Lab Results Current Lab Results: Laboratory Tests 07/22/21 21:47: POC Whole Bld Glucose 97 07/22/21 18:55: POC Whole Bld Glucose 173 H 07/22/21 17:20: WBC 13.9 H, RBC 4.57, Hgb 13.2, Hct 38.9, MCV 85.1, MCH 28.9, MCHC 33.9, RDW 14.3, Plt Count 247, MPV 11.1 H, Neut # (Auto) 10.6 H, Lymph # (Auto) 2.1, [place] # (Auto) 1.0, Eos # (Auto) 0.1, Baso # (Auto) 0.0, Absolute Nucleated RBC 0.00, Nucleated RBC % 0.0 07/22/21 17:20: Blood Type O POSITIVE, Antibody Screen NEGATIVE Fish Bones: 07/22/21 17:20 Home Medications and Allergies Active Medications Acetaminophen (Acetaminophen 500 Mg Tablet) 1,000 mg PO Q8H PRN PRN Reason: Pain or Fever > 38C (100.4F) Carboprost Tromethamine (Carboprost Tromethamine 250 Mcg/Ml Amp) 250 mcg IM .ONCE PRN PRN Reason: Hemorrhage Fentanyl (Fentanyl 100 Mcg/2 Ml Vial) 100 mcg IVP Q1H PRN PRN Reason: Severe Pain (score 7-10) Hydralazine HCl (Hydralazine Inj 20 Mg/Ml Vial) 5 - 10 mg IVP Q20M PRN; Protocol PRN Reason: SBP> or= 160 OR DBP> or= 110 Hydralazine HCl (Hydralazine Inj 20 Mg/Ml Vial) 10 mg IVP .ONCE PRN; Protocol PRN Reason: SBP> or= 160 OR DBP> or= 110 Oxytocin/Sodium Chloride (Pitocin/Sodium Chloride) 500 mls @ 999 mls/hr IV PRN PRN; Protocol PRN Reason: POST- HEMORR PREVENTION Tranexamic Acid (Tranexamic 1,000 Mg/100ml-Nacl) 1,000 mg in 100 mls @ 600 mls/hr IV Q30M PRN PRN Reason: EBL >1200mL and within 3hr Lactated Ringer's (Lr) 1,000 mls @ 125 mls/hr IV .Q8H PRN PRN Reason: Need for epidural Labetalol HCl (Labetalol 20 Mg/4 Ml Syringe) 20 - 80 mg IVP Q10M PRN; Protocol PRN Reason: SBP> or= 160 OR DBP> or= 110 Labetalol HCl (Labetalol 20 Mg/4 Ml Syringe) 20 mg IVP .ONCE PRN; Protocol PRN Reason: SBP> or= 160 OR DBP> or= 110 Labetalol HCl (Labetalol 20 Mg/4 Ml Syringe) 20 - 40 mg IVP Q10M PRN; Protocol PRN Reason: SBP> or= 160 OR DBP> or= 110 Lidocaine HCl (Lidocaine-Mpf 1% 30 Ml Vial) 30 ml ID ONCE PRN PRN Reason: PERINEAL REPAIR Stop: 07/23/21 16:58 Methylergonovine Maleate (Methylergonovine 0.2 Mg/Ml Vial) 0.2 mg IM .ONCE PRN PRN Reason: Hemorrhage Misoprostol (Misoprostol 200 Mcg Tablet) 600 mcg BC .ONCE PRN PRN Reason: Hemorrhage Misoprostol (Misoprostol 200 Mcg Tablet) 800 mcg MD .ONCE PRN PRN Reason: Hemorrhage Nifedipine (Nifedipine 10 Mg Capsule) 10 - 20 mg PO Q20M PRN; Protocol PRN Reason: SBP> or= 160 OR DBP> or= 110 Oxytocin (Oxytocin 10 Unit/Ml Vial) 10 unit IM .ONCE PRN PRN Reason: Step One if no IV access. Sodium Chloride (Sodium Chloride Flush 0.9% 10 Ml Syringe) 10 ml IVP PRN PRN PRN Reason: NEEDED PER PROVIDER ORDERS Sodium Chloride (Sodium Chloride Flush 0.9% 10 Ml Syringe) 10 ml IVP Q8H MUNA Terbutaline Sulfate (Terbutaline 1 Mg/Ml Vial) 0.25 mg SUBQ .ONCE PRN PRN Reason: Tachystole Cholecalciferol [Vitamin D3] 5,000 unit 03/22/17 FLUoxetine [PROzac] 10 mg PO DAILY 03/22/17 Insulin, PNV Allergies/Adverse Reactions: Allergies Allergy/AdvReac Type Severity Reaction Status Date / Time No Known Drug Allergies Allergy Verified 03/22/17 10:17 Anes History & Medical History - Anesthetic History Anesthesia Complications: reports: No previous complications - Medical History Cardiovascular: reports: None Pulmonary: reports: None Gastrointestinal: reports: None Urinary: reports: None Neuro: reports: None Musculoskeletal: reports: None Endocrine/Autoimmune: reports: Type 2 diabetes (gestational) Blood Disorders: reports: None Skin: reports: None Smoking Status: Former smoker Psychosocial: reports: Depression History of Cancer?: No - Surgical History General: reports: Cholecystectomy - Obstetrical History : 5 Parity: 1 Events: reports: Gestational diabetes Exam General: Alert, Oriented x3, Cooperative, No acute distress Dental: WNL Mouth Openin Fingerbreadth Neck Mobility: Normal Mallampati classification: II Thyromental Distance: 4-6 cm Mental/Cognitive Status: Alert/Oriented X3, Normal for patient Plan Anesthesia Type: Epidural Consent for Procedure(s) Verified and Reviewed: Yes Code Status: Attempt Resuscitation ASA classification: 2-Mild systemic disease Is this case an emergency?: No
--- NOTE | 2021-07-23 00:17 | PROVIDER PROGRESS NOTE ---
Labor Progress Note - Labor Progress Note Labor Progress Note/Additional Text: Called in due to deceleration treated by RN with position change, IVF bolus, and oxygen. Baby has now recovered and is category 2. SVE by RN 8cm and +1--likely decel is due to transition. Continuous monitoring and anticipate .
[2021-07-23] MEDS: LACTATED RINGERS 1,000 ML IV PRN (00:22)
--- NOTE | 2021-07-23 01:22 | DELIVERY NOTE ---
Delivery Note - Labor Labor: positive: Spontaneous - Delivery Method Delivery Method: positive: Spontaneous vaginal delivery - Presentation Presentation: positive: Vertex, MAXIMILIAN - right occiput anterior - Nuchal Cord Nuchal Cord: positive: Present, Reduced - Amniotic Fluid Description Amniotic Fluid Description: positive: Clear - Episiotomy Type Episiotomy Type: positive: None - Laceration Laceration: positive: 1st degree, Periurethral, Vaginal - Delivery Outcome Delivery Outcome: positive: Livebirth - [place]: positive: Placed in direct skin contact with mother, Bulb syringe, Stimulated, Warmed, Warmer used [place] sex: positive: Male : Apgars 7/8 - Cord Cord: positive: 3 vessels - Placenta Placenta: positive: Intact, Spontaneous - Estimated Blood Loss Estimated Blood Loss (in cc): 50 - Post Delivery Events Post Delivery Events: positive: No post delivery events - Delivery Comments (Free Text/Narrative) Delivery Comments (Free Text/Narrative): Patient had PROM at 37w, didn't require augmentation, did get an epidural. Labor was complicated by A2GDM and one elevated blood sugar to 172 that came down with insulin. Shallow lacerations did not require repair. will stop sugar checks and watch mood due to hx of anxiety and depression.
[2021-07-23] MEDS ORDERED: WITCH HAZEL/GLYCERIN 1 PAD TOP PRN (01:25)
[2021-07-23] MEDS ORDERED: ONDANSETRON ODT 4 MG TABLET TL PRN (01:25)
[2021-07-23] MEDS ORDERED: HYDROCORTISONE 1% CREAM 28 GM TUBE PR PRN (01:25)
[2021-07-23] MEDS: IBUPROFEN 600 MG TABLET PO SCH ×4 (04:09→22:04)
[2021-07-23] MEDS: DOCUSATE SODIUM 100 MG CAPSULE PO SCH ×2 (09:51→22:04)
[2021-07-24] MEDS: IBUPROFEN 600 MG TABLET PO SCH ×3 (04:31→17:28)
--- NOTE | 2021-07-24 09:35 | Discharge Plan ---
Discharge Plan Problem Reviewed?: Yes Disposition: Home, Self Care Condition: Good Prescriptions: Docusate Sodium 100Mg Capsule [Colace 100Mg Capsule] 100 mg PO BID PRN #60 PRN Reason: Constipation Diet: Regular Activity Restrictions: pelvic rest for 6w Shower Restrictions: No Driving Restrictions: No Additional Instructions or Follow Up instructions: Follow up with Jovita Penaloza--call her for an appointment. No Smoking: If you smoke, Please STOP! Call for help. Follow-up with: Jovita Penaloza CNM, [facility] [Provider Admit Priv/Credential] -
--- NOTE | 2021-07-24 09:39 | DISCHARGE SUMMARY ---
Discharge Summary Admit Date: 07/22/21 Discharge Date: 07/24/21 Discharging Provider: Edward Condition at Discharge: Good Discharge Disposition: 01 Home, Self Care - DIAGNOSES Admission Diagnoses: PROM at term, A2 gestational diabetes Discharge Diagnoses with Status of Each Condition: delivered. A2GDM stable. - HOSPITAL COURSE Hospital Course: Patient was admitted for PROM at 37w, didn't require augmentation, had an un complicated delivery and course. She had one elevated blood sugar that required insulin. She will stop her insulin and sugar checks but continue her "diabetic" diet at home. Discussed increased risk for diabetes throughout life and ways to mitigate. She will get her 2h glucose test with her follow up. - ALLERGIES Allergies/Adverse Reactions: Allergies Allergy/AdvReac Type Severity Reaction Status Date / Time No Known Drug Allergies Allergy Verified 03/22/17 10:17 - MEDICATIONS Home Medications: Ambulatory Orders Medication Instructions Recorded Confirmed Cholecalciferol [Vitamin D3] 5,000 unit 03/22/17 Docusate Sodium 100Mg Capsule 100 mg PO BID PRN #60 07/24/21 [Colace 100Mg Capsule] Docusate Sodium 100Mg Capsule 100 mg PO BID PRN #60 cap 07/24/21 [Colace 100Mg Capsule] Ibuprofen [Motrin] 600 mg PO Q6H tablet 07/24/21 - PHYSICAL EXAM AT DISCHARGE General Appearance: positive: Alert Eyes Bilateral: positive: Normal inspection Abdomen: positive: Non-tender, Other (Fundus firm, nontender, 1cm below umbilicus) Neurologic/Psychiatric: positive: Mood/affect nml - LABS Result Diagrams: 07/22/21 17:20 - FOLLOW UP Follow Up: With [facility] at 1w and 6w
[2021-07-24] MEDS: DOCUSATE SODIUM 100 MG CAPSULE PO SCH (11:25)
[2021-07-24 17:00] VITALS: BP 128/76
--- NOTE | 2021-07-24 18:05 | Labor Flowsheet ---
Labor Flowsheet Datetime Report Generated by CPN: 07/24/2021 18:05 Datetime: 07/24/2021 16:52 VITAL SIGNS NBP Sys/[place]/Mean (mmHg): 128 : 76 : 87 Pulse: 77 Datetime: 07/23/2021 20:05 SpO2 (%): 100 Datetime: 07/23/2021 03:00 PAIN Pain Scale: 0 Pain Presence: None/Denies Pain Type: N/A Pain Goal: 4 Datetime: 07/23/2021 02:46 Respirations: 20 Datetime: 07/23/2021 01:46 Pain Assessment Comments: Datetime: 07/23/2021 01:30 Stage of : Recovery Datetime: 07/23/2021 01:28 Patient Care Comments: Report given to LJ RN Datetime: 07/23/2021 01:25 Temperature (C): 36.8 Datetime: 07/23/2021 01:07 UTERINE ACTIVITY Monitor Mode: External Frequency (min): 1-3.5 Quality: Strong Duration (sec): 30-60 Pattern: Normal: <= 5 Contractions in 10 Minutes Resting Tone (Palpate): Relaxed ASSESSMENT A Monitor Mode: External US FHR Baseline Changes: No Baseline Change Variability: Moderate 6-25 bpm Accelerations: 10X10 Decelerations: Variable Category: Category II Datetime: 07/23/2021 01:02 COMMUNICATION Communication: Provider at Bedside Datetime: 07/23/2021 01:01 LaborFlag: Labor Datetime: 07/23/2021 00:47 VAGINAL EXAM Dilatation (cm): 10.0 Effacement (%): 100 Station: 2 Exam by: c gambs Datetime: 07/23/2021 00:26 Monitor Interventions for UA: [place] Adjusted Datetime: 07/23/2021 00:21 PATIENT CARE Patient Position/Activity: Left Lateral Datetime: 07/23/2021 00:12 Medication Comments: LR bolus completed, LR resumed at 125ml/hr Datetime: 07/23/2021 00:00 Actions for Decelerations: Side to Side Datetime: 07/22/2021 23:45 Contraction Comments: difficulty with tracing contractions, palpate mod-strong FHR Baseline Rate : 135 Comments: nurse in room, audible decel to 70's. Datetime: 07/22/2021 23:20 I/O Interventions: Flowers Cath Inserted Datetime: 07/22/2021 23:19 Anesthesia Level Check: T8- Ribs Datetime: 07/22/2021 22:32 ANESTHESIA Epidural Procedure: Test Dose Datetime: 07/22/2021 21:37 Pain Location: Abdomen; Coccyx Datetime: 07/22/2021 20:39 Hygiene: Leny Care Datetime: 07/22/2021 20:37 Vaginal Bleeding: Normal Show Cervix, Consistency: Soft Cervix, Position: Midposition Datetime: 07/22/2021 20:28 Communication Comments: MD called to go over POC. Do CE now and let MD know. Md changed fentanyl order from 50mcg to 100mcg. Pt. may have epidural whenever she desires. Do CE Q4hrs and let MD know if there is no change. Datetime: 07/22/2021 19:40 MEDICATIONS Insulin: Reg Insulin Subcutaneous (Units) @ 3u, right upper outter arm Datetime: 07/22/2021 19:08 Pain Relief Measures: Comfort Measures Pain Coping: Talking Through Contractions MATERNAL ASSESSMENT Level of Consciousness: Alert Headache: Denies Breath Sounds, Left: Clear and Equal Breath Sounds, Right: Clear and Equal Nausea/Vomiting: Denies RUQ Epigastric Pain: Denies Comfort Measures: Breathing/Relaxation; Family Support Datetime: 07/22/2021 19:00 Provider Notified (Name): Dr. Leon Notification Reason: Lab/Diagnostic Study
== END 2021-07-24 18:05 | disposition home or self-care (01) | DRG 807 ==
LOC: WFO 14:43 → FBP 14:45 → WFO 16:00 → FBP 16:01
PROVIDERS: ADMIT Obstetrics & Gynecology; ATTEND Obstetrics & Gynecology
PROC: 10E0XZZ Delivery of Products of Conception, External Approach (ICD-10-PCS; principal; 2021-07-23)
DX: O42.02 Full-term premature rupture of membranes, onset of labor within 24 hours of rupture (principal); Z37.0 Single live birth; O24.424 Gestational diabetes mellitus in childbirth, insulin controlled; O71.82 Other specified trauma to perineum and vulva; O69.81X0 Labor and delivery complicated by cord around neck, without compression, not applicable or unspecified; O99.214 Obesity complicating childbirth; O99.344 Other mental disorders complicating childbirth; F32.A Depression, unspecified; Z3A.37 37 weeks gestation of pregnancy; O76 Abnormality in fetal heart rate and rhythm complicating labor and delivery; Z87.891 Personal history of nicotine dependence
CPT/HCPCS: 84112; 85025; 86850; 86900; 86901; 99215; A9270; J1815; J7120; 59025; 99214

== ENCOUNTER 2021-07-28 14:12 | Emergency (ER) | payer MEDICAID ==
[2021-07-28 14:29] VITALS: BP 134/89
--- NOTE | 2021-07-28 17:10 | Ultrasound Report ---
PROCEDURE: Duplex Ext Veins Left INDICATIONS: LEG SWELLING TECHNIQUE: Real-time imaging, as well as color and pulse Doppler interrogation, were performed of the lower extr emity deep veins from the inguinal ligament to the popliteal fossa. COMPARISON: None. FINDINGS: The deep veins are normally compressible, and free of intraluminal thrombus. Color and pu lse Doppler demonstrate normal phasic intraluminal flow. There is normal augmentation response to di stal compression maneuver. IMPRESSION: No sonographic evidence of deep venous thrombosis in the left lower extremity. Reviewed by: Red Wheeler MD on 07/28/2021 5:09 PM PDT Approved by: Red Wheeler MD on 07/28/2021 5:09 PM PDT Station ID: [id number]
--- NOTE | 2021-07-28 17:33 | ED Physician Documentation ---
History of Present Illness - Stated complaint Stated Complaint: LT FOOT SWELLING - Chief complaint Chief Complaint: Ext Problem - Additonal information Additional information: 41-year-old female who is 5 days presents to the emergency department on the advice of her special education teaching assistant for evaluation of left foot swelling. Patient reports that she noticed the foot was swollen initially after giving but it got worse over the last 2 days. She denies any calf pain, chest pain, shortness of air. No headaches. She has had no fevers. She does have lochia which is decreasing in intensity. Reports the baby is breast-feeding well. She did deliver vaginally. Her was complicated by gestational diabetes. Her hyperglycemia resolved very quickly after and she has been advised to stop all insulin Review of Systems Constitutional: denies: Fever, Chills Nose: reports: Reviewed and negative Throat: reports: Reviewed and negative Cardiac: reports: Pedal edema Respiratory: reports: Reviewed and negative GI: reports: Reviewed and negative : reports: Other (Decreasing lochia) Skin: reports: Reviewed and negative Musculoskeletal: reports: Reviewed and negative PD PAST MEDICAL HISTORY - Past Medical History Cardiovascular: None Respiratory: None Neuro: None Endocrine/Autoimmune: Type 2 diabetes (gestational) GI: None : None Musculoskeletal: None Derm: None - Past Surgical History Past Surgical History: Yes General: Cholecystectomy - Present Medications Home Medications: Ambulatory Orders Medication Instructions Recorded Confirmed Cholecalciferol [Vitamin D3] 5,000 unit 03/22/17 Docusate Sodium 100Mg Capsule 100 mg PO BID PRN #60 07/24/21 [Colace 100Mg Capsule] Docusate Sodium 100Mg Capsule 100 mg PO BID PRN #60 cap 07/24/21 [Colace 100Mg Capsule] Ibuprofen [Motrin] 600 mg PO Q6H tablet 07/24/21 - Allergies Allergies/Adverse Reactions: Allergies Allergy/AdvReac Type Severity Reaction Status Date / Time No Known Drug Allergies Allergy Verified 07/28/21 14:29 - Social History Does the pt smoke?: No Smoking Status: Former smoker Does the pt drink ETOH?: No Does the pt have substance abuse?: No - Immunizations Immunizations are current?: Yes PD ED PE NORMAL - General General: Alert and oriented X 3, No acute distress - HEENT HEENT: Atraumatic - Neck Neck: Supple, no meningeal sign, No JVD - Cardiac Cardiac: RRR, No murmur - Respiratory Respiratory: No respiratory distress, Clear bilaterally - Abdomen Abdomen: Normal bowel sounds, Soft - Derm Derm: Normal color, Warm and dry - Extremities Extremities: No deformity, No tenderness to palpate, Normal ROM s pain, No calf tenderness / cord. No: No edema (Mild nonpitting edema localized to the left foot. No posterior calf pain tenderness. No erythema.) - Neuro Neuro: Alert and oriented X 3, No motor deficit Eye Opening: Spontaneous Motor: Obeys Commands Verbal: Oriented GCS Score: 15 Results - Vitals Vitals: Vital Signs - 24 hr 07/28/21 14:24 Temperature 36.8 C Heart Rate 74 Respiratory 12 Rate Blood Pressure 134/89 H O2 Saturation 99 Oxygen O2 Source Room air - Rads (name of study) left leg US DVT Radiology: Final report received (No sonographic evidence of DVT in the left lower extremity) PD MEDICAL DECISION MAKING - ED course Complexity details: reviewed results, considered differential, d/w patient ED course: Well-appearing 41-year-old female who has normal vital signs presents to the emergency department for evaluation of left foot pedal edema. Patient reports this has been present for 5 days since delivering her baby. She has no calf pain tenderness. No headaches, chest pain or shortness of air. Ultrasound DVT is negative. Patient is advised to follow closely with her special education teaching assistant. If the lower extremity edema does not resolve she should have repeat sonographic imaging. Patient is to return to the emergency department for fevers, chest pain, shortness of air or headaches. Departure - Departure Disposition: 01 Home, Self Care Clinical Impression: Localized swelling of left foot Condition: Stable Record reviewed to determine appropriate education?: Yes Comments: Annette you are seen this afternoon in the ER because you have had some swelling in your foot since delivering your baby. We did do an ultrasound to rule out a blood clot and it was negative. Please discuss this ED visit with Jovita Higgins your special education teaching assistant. If this foot swelling does not resolve, if it gets worse, you develop chest pain, You develop any fevers, have shortness of air then please return immediately to the emergency department.
== END 2021-07-28 17:42 | disposition home or self-care (01) ==
LOC: ED 14:12
DX: R22.42 Localized swelling, mass and lump, left lower limb (principal); Z87.891 Personal history of nicotine dependence
CPT/HCPCS: 99282; 99284

== ENCOUNTER 2021-10-24 13:47 | Outpatient (CLI) | payer MEDICAID ==
[2021-10-24 14:07] LABS: BASOPHILS % (AUTO) 0.4 %; EOSINOPHILS # (AUTO) 0.1 10^3/uL (0.0-0.7); EOSINOPHILS % (AUTO) 1.5 %; HCT - HEMATOCRIT 40.5 % (37.0-47.0); HGB - HEMOGLOBIN 13.9 g/dL (12.0-16.0); LYMPHOCYTES # (AUTO) 2.7 10^3/uL (1.5-3.5); LYMPHOCYTES % (AUTO) 29.9 %; MEAN CORPUSCULAR HEMOGLOBIN 29.6 pg (27.0-31.0); MEAN CORPUSCULAR HGB CONC 34.3 g/dL (32.0-36.0); MEAN CORPUSCULAR VOLUME 86.4 fL (81.0-99.0); MONOCYTES # (AUTO) 0.6 10^3/uL (0.0-1.0); MONOCYTES % (AUTO) 6.7 %; NEUTROPHILS # (AUTO) 5.6 10^3/uL (1.5-6.6); NEUTROPHILS % (AUTO) 61.2 %; PLT - PLATELET COUNT 274 10^3/uL (130-450); RED BLOOD COUNT 4.69 10^6/uL (4.20-5.40); RED CELL DISTRIBUTION WIDTH 14.4 % (12.0-15.0); WHITE BLOOD COUNT 9.2 x10^3/uL (4.8-10.8)
== END 2021-10-24 13:48 | disposition home or self-care (01) ==
LOC: LAB 13:47
PROVIDERS: ATTEND Obstetrics & Gynecology
DX: Z01.812 Encounter for preprocedural laboratory examination (principal)
CPT/HCPCS: 36415; 85025; 86850; 86900; 86901

== ENCOUNTER 2021-10-25 09:32 | Day surgery (SDC) | payer MEDICAID ==
[~2021-10-25 09:32] MED LIST: BUPIVACAINE 0.5% PF 30 ML VIAL ONE; LIDOCAINE MPF 2%-EPI 1:200000 20 ML VIAL ONE
[2021-10-25] MEDS ORDERED: LACTATED RINGERS 1,000 ML IV ONE ×2 (09:55→13:29)
[2021-10-25 10:46] LABS: HCG UR QUAL NEGATIVE
[2021-10-25] MEDS ORDERED: KETAMINE 500 MG/10 ML VIAL ONE (12:10)
[2021-10-25] MEDS ORDERED: fentaNYL 100 MCG/2 ML VIAL ONE (12:10)
[2021-10-25] MEDS ORDERED: MIDAZOLAM 2 MG/2 ML VIAL ONE (12:10)
[2021-10-25] MEDS ORDERED: ACETAMINOPHEN 1,000 MG/100 ML 1,000 MG/100 ML BAG IV ONE (12:11)
[2021-10-25] MEDS ORDERED: SODIUM CHLORIDE 0.9% 10 ML VIAL IVP ONE (12:11)
[2021-10-25] MEDS ORDERED: diphenhydrAMINE INJ 50 MG/ML VIAL ONE (12:12)
[2021-10-25] MEDS ORDERED: ONDANSETRON 4 MG/2 ML VIAL ONE ×2 (12:12)
[2021-10-25] MEDS ORDERED: SUGAMMADEX 200 MG/2 ML VIAL IVP ONE (12:12)
[2021-10-25] MEDS ORDERED: DEXAMETHASONE 4 MG/ML VIAL ONE (12:12)
[2021-10-25] MEDS ORDERED: BUPIVACAINE 0.5% PF 30 ML VIAL INFIL ONE ×2 (12:52)
--- NOTE | 2021-10-25 12:53 | ANESTHESIA ---
Pre-Anesthesia VS, & Labs - Diagnosis DESIRES STERILIZATION - Procedure LAPAROSCOPIC SALPINGECTOMY Vital Signs: Temp Pulse Resp BP Pulse Ox 36.6 C 52 L 14 115/60 99 10/25/21 09:50 10/25/21 09:50 10/25/21 09:50 10/25/21 09:50 10/25/21 09:50 Height: 5 ft Weight (kg): 80.6 kg Body Mass Index: 34.7 BMI Classification: Obese - NPO >8 hours - Is Patient ?: No - Lab Results Current Lab Results: Laboratory Tests 10/25/21 10:00: POC Whole Bld Glucose 79 Home Medications and Allergies Home Medications: Ambulatory Orders Acetaminophen [Tylenol] 650 mg PO Q6H PRN 10/19/21 metFORMIN [Glucophage] 500 mg PO QPM 10/19/21 Acetaminophen [Tylenol] 650 mg PO Q6H PRN 10/19/21 metFORMIN [Glucophage] 500 mg PO QPM 10/19/21 Allergies/Adverse Reactions: Allergies Allergy/AdvReac Type Severity Reaction Status Date / Time No Known Drug Allergies Allergy Verified 10/25/21 07:40 Anes History & Medical History - Anesthetic History Anesthesia Complications: reports: No previous complications Family history of Anesthesia Complications: Denies Family history of Malignant Hyperthermia: Denies - Medical History Cardiovascular: reports: None Pulmonary: reports: None Gastrointestinal: reports: None Urinary: reports: None Neuro: reports: None Musculoskeletal: reports: None Endocrine/Autoimmune: reports: Type 2 diabetes Blood Disorders: reports: None Skin: reports: None Smoking Status: Former smoker Psychosocial: reports: Cannabis History of Cancer?: No - Surgical History General: reports: Cholecystectomy Exam General: Alert, Oriented x3, Cooperative, No acute distress Dental: WNL Mouth Openin Fingerbreadth Mallampati classification: I Thyromental Distance: 4-6 cm Respiratory: Lungs clear, Normal breath sounds, No respiratory distress, No accessory muscle use Cardiovascular: Regular rate, Normal S1, Normal S2, No murmurs Mental/Cognitive Status: Alert/Oriented X3, Normal for patient Cognitive Status: Within normal limits Plan Anesthesia Type: General Consent for Procedure(s) Verified and Reviewed: Yes Code Status: Attempt Resuscitation ASA classification: 2-Mild systemic disease Is this case an emergency?: No
[2021-10-25] MEDS ORDERED: LIDOCAINE MPF 2%-EPI 1:200000 10 ML VIAL SUBQ ONE ×2 (12:54)
[2021-10-25] MEDS ORDERED: HYDROcod/ACETAM 5/325 MG TABLET PO PRN (13:26)
--- NOTE | 2021-10-25 13:31 | OPERATIVE REPORT ---
Operative Report - General Procedure Date: 10/25/21 Planned Procedure: Laparoscopic bilateral salpingectomy Pre-Op Diagnosis: Desires sterility Procedure Performed: Laparoscopic bilateral salpingectomy Post Op Diagnosis: Status post bilateral salpingectomy - Procedure Note Primary Surgeon: Dustin Orr MD Secondary Surgeon: [facility] Pederson Anesthesia Provider: Yi Wright CRNA Anesthesia Technique: General ET tube Pathology: Bilateral fallopian tubes IV Fluids (mL): 350 Estimated Blood Loss (mL): 5 Urine Output (mL): 100 (Straight cath before procedure) Complications: None - Other Other Information/Narrative: Prior to surgery, we discussed the risks, alternatives, benefits to tubal ligation. We discussed long-acting control such as IUDs and implants. We had discussion about partner vasectomy and the pros and cons to this including a smaller surgery, and easier recovery. We discussed the general risk of surgery including infection, bleeding, damage to other organs, needing a larger incision. Specific to tubal ligation, we discussed the risk of regret, and discussed that regret is greater in those under 30, without children, and not in stable relationships. Patient says she is confident in her decision to not have any more children. We also discussed the risk of failure, and that less than 1/100 tubal ligation fail, but if it did, she would be at increased risk of ectopic . Patient desires to proceed with bilateral tubal ligation. Procedure summary: Patient was taken to the OR and placed in the dorsal lithotomy position using Yellofin stirrups after adequate anesthesia was obtained. Patient was prepped and draped in the usual fashion. A single-tooth tenaculum was used to grasp the anterior lip of the cervix. The uterine fundus was sounded to 8 cm. A HUMI medical was placed in the uterus and balloon was inflated. Sterile attire was then changed 2 mL of 0.25% Marcaine was used both below the umbilicus. An 11 blade scalpel was used to incise the skin. Direct entry was used to place the infraumbilical trocar. Upon entering the peritoneal cavity, low flow was used to ensure appropriate positioning. Upon visualization of the abdominal cavity, high flow was then initiated. 2 additional trochars were placed in the right and left lower quadrants respectively under direct visualization. After visualization of the leftfallopian tube, the fimbriated end was grasped with an atraumatic t grasper, and the LigaSure device was used to coagulate and separate the tube from the ovary. The mesosalpinx was sequentially cauterized and ligated marking to the cornua. At the cornua, the device was used to cauterize and transect the tube from the uterus and the tube was then removed from the abdomen. A similar procedure was performed on the right side. The abdomen was reviewed for hemostasis, and a healthy-appearing liver was noted. The trocar was then r emoved, and peritoneum was evacuated from gas. The trocar sites were then closed with a 4-0 Monocryl in a sub-cuticular fashion and covered with Dermabond. Patient was taken to the PACU in stable condition.
[2021-10-25] MEDS ORDERED: ePHEDrine 50 MG/ML VIAL IVP PRN (14:07)
[2021-10-25] MEDS ORDERED: NALOXONE 0.4 MG/ML VIAL IVP PRN (14:07)
[2021-10-25] MEDS ORDERED: ONDANSETRON 4 MG/2 ML VIAL IVP PRN (14:07)
[2021-10-25] MEDS ORDERED: MORPHINE 2 MG/ML CARPUJECT IVP PRN (14:07)
[2021-10-25] MEDS ORDERED: METOCLOPRAMIDE 10 MG/2 ML VIAL IVP PRN (14:07)
[2021-10-25] MEDS ORDERED: ATROPINE ABBOJECT 1 MG/10 ML SYRINGE IVP PRN (14:07)
[2021-10-25] MEDS ORDERED: HYDROmorphone 0.5 MG/0.5 ML SYRINGE IVP PRN (14:07)
[2021-10-25] MEDS ORDERED: fentaNYL 100 MCG/2 ML VIAL IVP PRN (14:07)
[2021-10-25] MEDS ORDERED: HYDROcod/ACETAM 5/325 MG TABLET ONE (14:54)
[2021-10-25] MEDS ORDERED: LACTATED RINGERS 1,000 ML IV SCH (15:00)
[2021-10-25 15:06] VITALS: BP 118/68
--- NOTE | 2021-10-25 17:19 | ANESTHESIA POST OP EVALUATION ---
Anesthesia Post Eval - Post Anesthesia Eval Vitals: Last Vital Signs Temp 36.6 C 10/25/21 15:05 Pulse 69 10/25/21 15:05 Resp 16 10/25/21 15:05 BP 118/68 10/25/21 15:05 Pulse Ox 99 10/25/21 15:05 CV Function Including HR & BP: Stable Pain Control: Satisfactory Nausea & Vomiting: Negative Mental Status: Baseline Respiratory Status: Airway Patent Hydration Status: Satisfactory Anesthesia Complications: None
== END 2021-10-25 09:33 | disposition home or self-care (01) ==
LOC: SDS 09:32
PROVIDERS: ATTEND Obstetrics & Gynecology
PROC: 0UB74ZZ Excision of Bilateral Fallopian Tubes, Percutaneous Endoscopic Approach (ICD-10-PCS; principal; 2021-10-25 10:45)
DX: Z30.2 Encounter for sterilization (principal); E11.9 Type 2 diabetes mellitus without complications; E66.01 Morbid (severe) obesity due to excess calories; Z32.02 Encounter for pregnancy test, result negative; Z68.34 Body mass index [BMI] 34.0-34.9, adult; Z79.84 Long term (current) use of oral hypoglycemic drugs; Z87.891 Personal history of nicotine dependence
CPT/HCPCS: 58661; 81025; A9270; J0131; J1200; J7120

== ENCOUNTER 2022-10-23 08:01 | Outpatient (CLI) | payer MEDICAID ==
[2022-10-23 08:13] LABS: BASOPHILS # (AUTO) 0.1 10^3/uL (0.0-0.1); BASOPHILS % (AUTO) 0.5 %; EOSINOPHILS # (AUTO) 0.1 10^3/uL (0.0-0.7); EOSINOPHILS % (AUTO) 0.9 %; HCT - HEMATOCRIT 45.2 % (37.0-47.0); HGB - HEMOGLOBIN 15.3 g/dL (12.0-16.0); MEAN CORPUSCULAR HEMOGLOBIN 30.2 pg (27.0-31.0); MEAN CORPUSCULAR HGB CONC 33.8 g/dL (32.0-36.0); MEAN CORPUSCULAR VOLUME 89.2 fL (81.0-99.0); MEAN PLATELET VOLUME 10.1 fL (7.9-10.8); MONOCYTES # (AUTO) 0.6 10^3/uL (0.0-1.0); MONOCYTES % (AUTO) 6.7 %; NEUTROPHILS # (AUTO) 6.7 10^3/uL (1.5-6.6); NEUTROPHILS % (AUTO) 70.6 %; PLT - PLATELET COUNT 273 10^3/uL (130-450); RED BLOOD COUNT 5.07 10^6/uL (4.20-5.40); RED CELL DISTRIBUTION WIDTH 12.4 % (12.0-15.0); WHITE BLOOD COUNT 9.5 x10^3/uL (4.8-10.8)
[2022-10-23 08:27] LABS: ALBUMIN 4.5 g/dL (3.2-5.5); ALBUMIN/GLOBULIN RATIO 1.6 (1.0-2.2); ALKALINE PHOSPHATASE 60 IU/L (42-121); ALT ALANINE AMINOTRANSFERASE 18 IU/L (10-60); AST ASPARTATE AMINOTRANSFERASE 13 IU/L (10-42); BILIRUBIN,TOTAL 0.6 mg/dL (0.2-1.0); BUN - BLOOD UREA NITROGEN 9 mg/dL (6-20); CALCIUM 9.7 mg/dL (8.5-10.3); CARBON DIOXIDE - CO2 29 mmol/L (21-32); CHLORIDE 104 mmol/L (101-111); CHOL/HDL RATIO 4.2 (<4.4); CHOLESTEROL 160 mg/dL; CREATININE 0.9 mg/dL (0.6-1.3); GFR - MDRD 69 (>89); GLUCOSE 104 mg/dL (74-104); HDL CHOLESTEROL 38 mg/dL; LDL CHOLESTEROL,CALCULATED 100 mg/dL; LDL/HDL RATIO 2.6 (<4.4); POTASSIUM 4.2 mmol/L (3.5-4.5); SODIUM 137 mmol/L (135-145); TOTAL PROTEIN 7.3 g/dL (6.4-8.9); TRIGLYCERIDES 108 mg/dL (48-352); VLDL CHOLESTEROL 22 mg/dL
[2022-10-23 08:42] LABS: THYROID STIMULATING HORMONE 2.07 uIU/mL (0.34-5.60)
== END 2022-10-23 08:02 | disposition home or self-care (01) ==
LOC: LAB 08:01
PROVIDERS: ATTEND Registered Nurse
DX: Z13.228 Encounter for screening for other metabolic disorders (principal); Z13.220 Encounter for screening for lipoid disorders; Z13.29 Encounter for screening for other suspected endocrine disorder; Z13.0 Encounter for screening for diseases of the blood and blood-forming organs and certain disorders involving the immune mechanism
CPT/HCPCS: 36415; 80053; 80061; 83721; 84443; 85025

== ENCOUNTER 2023-08-02 09:41 | Outpatient (CLI) | payer OTHER ==
[2023-08-02] MEDS ORDERED: iohexoL-300 100 ML VIAL ONE (10:03)
[2023-08-02] MEDS ORDERED: DIATRIZOATE MEGLU/DIATRIZO SOD 30 ML BOTTLE PO ONE (10:03)
[2023-08-02] MEDS: iohexoL-300 100 ML VIAL IVP ONE (12:28)
[2023-08-02] MEDS: DIATRIZOATE MEGLU/DIATRIZO SOD 30 ML BOTTLE PO ONE (12:29)
--- NOTE | 2023-08-02 14:15 | CT Report ---
PROCEDURE: Abdomen/Pelvis W INDICATIONS: ABD PAIN CONTRAST: Omni 300 100ml TECHNIQUE: After the administration of intravenous contrast, a CT scan of the abdomen and pelvis was performed. Images were recorded and evaluated at appropriate window settings. Reformats: coronal and sagittal. F or radiation dose reduction, the following was used: automated exposure control, adjustment of mA and /or kV according to patient size. COMPARISON: None. FINDINGS: Image quality: Diagnostic. Lower chest: Unremarkable. Liver: No solid mass. Gallbladder: Surgically absent. Biliary tree: No intrahepatic or extrahepatic dilation, accounting for age. Spleen: No splenomegaly. Pancreas: No pancreatic ductal dilation. Adrenals: No adrenal nodule. Kidneys and ureters: Symmetric enhancement. Punctate, nonobstructing left lower pole intrarenal calcu magdaleno. No hydronephrosis or hydroureter. Stomach, bowel and peritoneum: Stomach and small bowel are normal. Normal appendix. No suspicious col on wall thickening. The distal colon is decompressed. No pathologic free fluid. Lymph nodes: No central or retroperitoneal adenopathy. Vessels: Normal caliber abdominal aorta, IVC, and portal vein. PELVIS Reproductive organs: Anteverted uterus and right ovary have a normal appearance. There is a periphera lly vascular, slightly involuting left ovarian corpus luteum. No suspicious adnexal masses or fluid c ollections. Bladder: No abnormal wall thickening, accounting for underdistention. Pelvic lymph nodes: No pelvic adenopathy by size criteria. Bones: No aggressive osseous abnormality. Other: No significant ventral or inguinal hernia. IMPRESSION: Peripherally vascular involuting left corpus luteum. Normal appendix. Nonobstructing, likely clinically insignificant, left lower pole intrarenal calculus. Reviewed by: Indigo Campbell MD on 08/02/2023 2:14 PM PDT Approved by: Indigo Campbell MD on 08/02/2023 2:14 PM PDT Station ID: [id number]
== END 2023-08-02 09:42 | disposition home or self-care (01) ==
LOC: DI 09:41
PROVIDERS: ATTEND Registered Nurse
DX: N83.12 Corpus luteum cyst of left ovary (principal); N20.0 Calculus of kidney
CPT/HCPCS: 74177; Q9963; Q9967